=== PATIENT | female | born 1995 | race Caucasian/White ===

== ENCOUNTER 2017-12-08 13:30 | Outpatient (RCR) | payer MEDICAID, SELFPAY ==
--- NOTE | 2017-12-07 14:02 | HP.PTEVAL ---
Patient's Visit Information RAULITO PEDRO is a 22 year old F referred to Physical Therapy by Marika JAMESON with a diagnosis of BACK PAIN. Date of Evaluation: 12/07/17 Physical Therapist: Rhonda Story Visit Plan Frequency: 2-3x /Week Duration: 4-6 Weeks Plan: *ALMOST 27 WEEKS *. AQUATIC THERAPY FOR POSTURE CORRECTION/STRENGTHENING, INSTRUCTION IN APPROPRIATE BODY MECHANICS AND ACTIVITY MODIFICATIONS. DLS STARTING WITH A NEUTRAL SPINE PROGRESSING ROM TOLERATED. ROBERT LE ROM, STRETCHING AND STRENGTHENING. HEP INSTRUCTION. - Subjective Subjective: *PATIENT IS ALMOST 27 WEEKS *. Work/Leisure: WAS WORKING AT [employer] IN THE [facility] FROM JUN 2017 UNTIL NOV 21 2017. PATIENT REPORTS SHE HAS NOT BEEN ABLE TO WORK SINCE Nov DUE TO LOW BACK PAIN. WAS WORKING SYSTEM VALIDATION ENGINEER. BENDING, LIFTING AND TWISTING AT WORK. MOM OF 4 YEAR OLD. Disability: NO. Present symptoms: ALL THE WAY ACROSS THE LOW BACK AND LEFT ABDOMINAL AREA. DENIES LE SX'S. Present since: Nov. Pain Scale: BACK: WORSE 8/10, LEAST 1/10 LEFT ABDOMINAL AREA: WORST 8/10, LEAST 0/10. Currently: 2/. Commenced as a result of: NO APPARENT REASON OTHER THAN THE . Symptoms at onset: LOW BACK. Worse: MOVING AROUND, WALKING, STANDING, LIFTING, BENDING OVER. Better: HEATING PAD, LYING DOWN, PAIN MEDS (TYLONOL AND TRAMADOL). Disturbed sleep: YES. Previous history/Previous treatment: UNREMARKABLE. Coughing/sneezing/straining: NEGATIVE. Gait: BACK GETS STIFF AND SORE WITH PROLONGED WALKING. NO USING ANY ASSISTIVE DEVICES. Difficulty initiating urinatin: NO. Accidents: NO. Unexplained weight loss: NO. Imaging: NONE. PMH: UNREMARKABLE. Recent major surgery: NO - Objective Sitting Posture: POOR. Standing Posture: FAIR. Lordosis: INCREASED. Lateral shift: NO. Relevant shift: N/A. Active Correction of posture: BETTER. Other Observations: INDEP GAIT INTO PT WITHOUT AD. INDEP TRANSFERS SIT TO STAND WITHOUT UE ASSIST. Motor deficit: ROBERT LE STRENGTH 5/5 WITH MMT EXCEPT HIPS GRADED 4/5 LEFT AND 4-/5 RIGHT. Sensory deficit: ROBERT LE LIGHT TOUCH SENSATION INTACT AND SYMMETRICAL. ROM deficit: ROBERT LE'S WFL. Reflexes: 2/3 ROBERT. Dural Signs: POSITITVE ROBERT LE'S. Lumbar mvmt loss: flex - MOD. ext - MIN. R SG - MOD. L SG - MOD. PATIENT HAS C/O INCREASED LBP WITH LUMBAR ROM TESTING ALL PLANES LORENA FLEXION. PATIENT DID NOT REPORT INCREASED ABDOMINAL PAIN WITH ROM TESTING. Core strength: POOR. Palpation: TENDERNESS WITH PALPATION OF THE ENTIRE LUMBAR SPINE REGION. INCREASED MUSCLE TONE OF ROBERT THORACIC AND LUMBAR PARASPINALS. - Goals Goal 1:: DECREASE C/O LBP Goal Time Frame: 4-6 Weeks Goal 2:: IMPROVE STANDING, WALKING, BENDING, LIFTING, ADL, SLEEP AND WORK FUNCTION Goal Time Frame: 4-6 Weeks Goal 3:: INSTRUCT IN PROPHYLAXIS Goal Time Frame: 4-6 Weeks - Rehabilitation Potential Rehabilitation Potential: Good - Anticipated Interventions Patient/Client Instruction: Educate patient on: Condition, Plan of Care, Risk Factors, Benefits of Fitness Program For the Purpose of:: To improve self management Therapeutic Exercise to Include: Strength training, Body mechanics, Postural training, In an aquatic setting, Dynamic Lumbar Stabilization For the Purpose of:: To improve ability of physical actions for home/community/work/leisure Thank you for the opportunity to evaluate your patient. For Medicare and Medicare HMO plans, please review the plan of care and approve it. It will need to be FAXED BACK to us at [phone] for Medicare purposes. Please let me know if there are questions or concerns regarding this plan of care. Physician Signature: Date:
--- NOTE | 2017-12-24 14:50 | HP.PTDCNRP_ITS ---
HP - Discharge Summary (1) - Patient Information RAULITO PEDRO was seen in my office for initial evaluation on 12/07/17. The following Plan of Care was established for this patient: Initial Frequency: 2-3x /Week Initial Duration: 4-6 Weeks - Anticipated Interventions Patient/Client Instruction: Educate patient on: Condition, Plan of Care, Risk Factors, Benefits of Fitness Program For the Purpose of:: To improve self management Therapeutic Exercise to Include: Strength training, Body mechanics, Postural training, In an aquatic setting, Dynamic Lumbar Stabilization For the Purpose of:: To improve ability of physical actions for home/community/ work/leisure This patient was last seen in our office . Pertinent comments regarding their Physical therapy will appear below: THIS PATIENT WAS SEEN FOR AN INITIAL EVALUATION AND THEN SHE ATTENDED ONE FOLLOW UP VISIT. SHE HAS APPARENTLY BEEN UNABLE TO ATTEND PT DUE TO ILLNESS. I AM GOING TO GO AHEAD AND DISCHARGE HER CHART BUT WE WOULD BE HAPPY TO RESUME PT IN THE FUTURE APPROPRIATE. At this point I will be discontinuing this patient from physical therapy. I would be happy to see this patient again in the future if found appropriate by the physician. Thank you! Rhonda Cooper
== END 2017-12-08 19:00 | disposition home or self-care (01) ==
LOC: PT 13:30
PROVIDERS: Family Provider Family Medicine; PCP Family Medicine; Visit Provider Obstetrics & Gynecology
DX: O99.89 Other specified diseases and conditions complicating pregnancy, childbirth and the puerperium (principal); Z3A.25 25 weeks gestation of pregnancy
CPT/HCPCS: 97113; 97161; 97530

== ENCOUNTER → 2017-12-17 08:59 | Outpatient (CLI) | payer MEDICAID, SELFPAY ==
[2017-12-17 10:46] LABS: Hemoglobin 11.3 g/dl (12.0-15.0); Mean Corp Hgb Conc 33.2 g/gl (32-36); Mean Corpuscular Hgb 28.5 pg (27.0-32.0); Mean Corpuscular Volume 85.9 fL (81-99); Mean Platelet Vol. 9.7 fl (6.2-12.0); Platelet Count 173 K/mm3 (150-450); RBC Distribution Width CV 12.9 % (11.6-14.6); RBC Distribution Width SD 40.6 fl (35.1-43.9); Red Blood Count 3.96 M/mm3 (4.2-5.4); White Blood Count 6.4 K/mm3 (4.4-11.0)
[2017-12-17 10:47] LABS: Scan Indicated on CBC? Y/N NO
[2017-12-17 10:48] LABS: Glucose Challenge Gest 1H 50g 101 mg/dL (70-140)
== END ==
PROVIDERS: Visit Provider Obstetrics & Gynecology
DX: Z34.83 Encounter for supervision of other normal pregnancy, third trimester (principal); R30.0 Dysuria; R31.9 Hematuria, unspecified
CPT/HCPCS: 36415; 82950; 85027; 87086; 87088

== ENCOUNTER 2018-02-05 16:20 | Outpatient (CLI) | payer MEDICAID, SELFPAY ==
[2018-02-05 16:48] VITALS: BMI 31.6
[2018-02-05] MEDS: Acetaminophen 500 MG Tablet 1000 MG PO (17:19)
--- NOTE | 2018-02-06 10:58 | OB.TRI.NOTE ---
History of Present Illness Date of Service: 02/05/18 Was patient seen by the physician?: No Reason For Visit: FALL Date of Service: 02/05/18 Final MATILDE: 03/11/18 Final MAITLDE Source: US <20 weeks Gestational age: 35 Weeks and 1 Days History of Present Illness: 35+ week intrauterine status post fall on her back at home. Did not hit abdomen. Denies any vaginal bleeding. Maternal blood type is A+. Home Medications Medication Instructions Recorded Vits [Prenatabs FA] 1 tablet PO DAILY 02/05/18 Ranitidine [Zantac] 150 mg PO BID 02/05/18 Allergies No Known Allergies Allergy (Unverified 02/05/18 16:48) NST - FHR Rate Baby A NST Reactive:: Yes FHR Category:: Category I Impression/Plan 35+ week intrauterine status post fall. Monitored for 4 hours with reactive heart tones noted and no decelerations. Minimal uterine irritability. Patient continues to have some musculoskeletal discomfort which has been partially relieved with some oral Tylenol. Recommended continuing Tylenol at home as needed for discomfort. To continue movement counts and to call with any decreased movement or vaginal bleeding. Otherwise routine follow-up in the office.
--- NOTE | 2018-02-06 11:01 | OB.TRI.HP_ITS ---
History of Present Illness Date of Service: 02/05/18 Was patient seen by the physician?: No Reason For Visit: FALL Date of Service: 02/05/18 Final MATILDE: 03/11/18 Final MATILDE Source: US <20 weeks Gestational age: 35 Weeks and 1 Days History of Present Illness: 35+ week intrauterine status post fall on her back at home. Did not hit abdomen. Denies any vaginal bleeding. Maternal blood type is A+. Home Medications Medication Instructions Recorded Vits [Prenatabs FA] 1 tablet PO DAILY 02/05/18 Ranitidine [Zantac] 150 mg PO BID 02/05/18 Allergies No Known Allergies Allergy (Unverified 02/05/18 16:48) NST - FHR Rate Baby A NST Reactive:: Yes FHR Category:: Category I Impression/Plan 35+ week intrauterine status post fall. Monitored for 4 hours with reactive heart tones noted and no decelerations. Minimal uterine irritability. Patient continues to have some musculoskeletal discomfort which has been partially relieved with some oral Tylenol. Recommended continuing Tylenol at home as needed for discomfort. To continue movement counts and to call with any decreased movement or vaginal bleeding. Otherwise routine follow-up in the office.
== END 2018-02-05 19:47 | disposition home or self-care (01) ==
LOC: WPOUT 16:22 → WP 16:23
PROVIDERS: Family Provider Family Medicine; PCP Family Medicine; Visit Provider Obstetrics & Gynecology
DX: Z34.93 Encounter for supervision of normal pregnancy, unspecified, third trimester (principal); Z91.81 History of falling
CPT/HCPCS: 59025; 59050; 99218; G0378

== ENCOUNTER 2018-02-07 14:35 | Outpatient (CLI) | payer MEDICAID, SELFPAY ==
[2018-02-07 15:08] VITALS: BMI 31.8
--- NOTE | 2018-02-08 18:53 | OB.TRI.NOTE ---
History of Present Illness Was patient seen by the physician?: No Reason For Visit: VAGINAL BLEEDING Date of Service: 02/07/18 Final MATILDE: 03/11/18 Gestational age: 35 Weeks and 3 Days History of Present Illness: 35+ week intrauterine presents with some dark tinged blood that she noted at home. Patient has been feeling some crampiness at home. Home Medications Medication Instructions Recorded Vits [Prenatabs FA] 1 tablet PO DAILY 02/05/18 Ranitidine [Zantac] 150 mg PO BID 02/05/18 Allergies No Known Allergies Allergy (Verified 02/07/18 15:08) NST - FHR Rate Baby A NST Reactive:: Yes FHR Category:: Category I Impression/Plan 35+ week intrauterine with transient contractions. No active bleeding at present is no bright red blood was seen on the globe or the pad. Cervix was fingertip thick and high as well as firm and posterior. Reactive nonstress test. Will release to home with routine instructions.
== END 2018-02-07 15:35 | disposition home or self-care (01) ==
LOC: WPOUT 14:48 → WP 14:49
PROVIDERS: Family Provider Family Medicine; PCP Family Medicine; Visit Provider Obstetrics & Gynecology
DX: O46.93 Antepartum hemorrhage, unspecified, third trimester (principal); Z3A.35 35 weeks gestation of pregnancy
CPT/HCPCS: 59025; 59050; 99218; G0378

== ENCOUNTER → 2018-02-10 14:50 | Outpatient (CLI) | payer MEDICAID, SELFPAY ==
[2018-02-10 17:12] LABS: Group B Strep DNA By PCR POSITIVE (Negative); Probe Check PASS
== END ==
PROVIDERS: Visit Provider Obstetrics & Gynecology
DX: Z36.85 Encounter for antenatal screening for Streptococcus B (principal)
CPT/HCPCS: 87653

== ENCOUNTER 2018-03-18 07:05 | Inpatient (IN) | payer MEDICAID, SELFPAY ==
--- NOTE | 2018-03-18 07:05 | DT_ITS ---
This patient was seen during an EMR downtime March 15, 2018 - March 22, 2018. This patient may have a combination of paper and electronic documentation or all paper documentation. All documentation is viewable within the e-chart portion of [employer] for each patient visit.
[2018-03-21 10:56] LABS: Hematocrit 31.5 % (37-47); Hemoglobin 9.9 g/dl (12.0-15.0); Mean Corp Hgb Conc 31.4 g/gl (32-36); Mean Corpuscular Hgb 24.9 pg (27.0-32.0); Mean Corpuscular Volume 79.1 fL (81-99); Mean Platelet Vol. 10.6 fl (6.2-12.0); Platelet Count 175 K/mm3 (150-450); RBC Distribution Width CV 14.2 % (11.6-14.6); RBC Distribution Width SD 40.3 fl (35.1-43.9); Red Blood Count 3.98 M/mm3 (4.2-5.4); Scan Indicated on CBC? Y/N NO; White Blood Count 11.2 K/mm3 (4.4-11.0)
[2018-03-22 17:01] LABS: Hematocrit 27.6 % (37-47); Hemoglobin 8.6 g/dl (12.0-15.0); Mean Corp Hgb Conc 31.2 g/gl (32-36); Mean Corpuscular Hgb 25.4 pg (27.0-32.0); Mean Corpuscular Volume 81.7 fL (81-99); Platelet Count 151 K/mm3 (150-450); RBC Distribution Width SD 39.9 fl (35.1-43.9); Red Blood Count 3.38 M/mm3 (4.2-5.4); Scan Indicated on CBC? Y/N NO; White Blood Count 10.7 K/mm3 (4.4-11.0)
== END 2018-03-20 12:55 | disposition home or self-care (01) | DRG 372 ==
PROVIDERS: Admitting Provider Obstetrics & Gynecology; Family Provider Family Medicine; PCP Family Medicine; Visit Provider Obstetrics & Gynecology
DX: O48.0 Post-term pregnancy (principal); O98.82 Other maternal infectious and parasitic diseases complicating childbirth; Z3A.41 41 weeks gestation of pregnancy; B95.1 Streptococcus, group B, as the cause of diseases classified elsewhere; Z37.0 Single live birth; O72.1 Other immediate postpartum hemorrhage
CPT/HCPCS: 59025; 59050; 85027; 86850; 86900; 99218; A4216; G0378

== ENCOUNTER → 2018-04-28 11:26 | Outpatient (CLI) | payer MEDICAID, SELFPAY ==
[2018-05-03 10:11] LABS: HPV Reflexed? NOT INDICATED
== END ==
PROVIDERS: Visit Provider Obstetrics & Gynecology
DX: R87.612 Low grade squamous intraepithelial lesion on cytologic smear of cervix (LGSIL) (principal)
CPT/HCPCS: 88175; G0145

== ENCOUNTER → 2018-12-28 09:17 | Outpatient (CLI) | payer MEDICAID, SELFPAY ==
[2018-12-28 10:04] LABS: Absolute Lymphocyte Count 2.27 X10^3/ul (0.83-4.51); Absolute Neutrophil Count 2.8 X10^3/uL (2.0-7.7); Basophil# 0.01 X10^3/uL; Basophil% 0.2 % (0-1); Eosinophil# 0.04 X10^3/uL; Eosinophils% 0.7 % (0-5); Hematocrit 35.3 % (37-47); Hemoglobin 10.8 g/dl (12.0-15.0); Lymphocyte # 2.27 X10^3/ul (4.0); Lymphocyte % 42.2 % (19-41); Mean Corp Hgb Conc 30.6 g/gl (32-36); Mean Corpuscular Hgb 25.1 pg (27.0-32.0); Mean Corpuscular Volume 82.1 fL (81-99); Mean Platelet Vol. 10.3 fl (6.2-12.0); Monocyte# 0.31 X10^3/uL; Monocyte% 5.8 % (0-10); Neutrophil # 2.75 X10^3/uL (2.7-7.7); Neutrophil % 51.1 % (47-70); Platelet Count 204 K/mm3 (150-450); RBC Distribution Width CV 15.9 % (11.6-14.6); RBC Distribution Width SD 46.9 fl (35.1-43.9); White Blood Count 5.4 K/mm3 (4.4-11.0)
[2018-12-28 10:05] LABS: POSITIVE COUNT NO; POSITIVE DIFFERENTIAL NO; POSITIVE MORPHOLOGY NO
[2018-12-28 10:27] LABS: Anion Gap 9 (5-15); BUN 15 mg/dL (7-18); BUN/Creat Ratio 17.1 RATIO (10-20); Calcium,Total 8.3 mg/dL (8.5-10.1); Chloride 106 mmol/L (98-107); Creatinine, Serum 0.88 mg/dL (0.55-1.02); EST Glomerular Filtration Rate 84 mL/min (>60); Est Glom Filt Rate - Afr Amer 102 mL/min (>60); Glucose 88 mg/dL (74-106); Potassium 4.3 mmol/L (3.5-5.1); Sodium Level 141 mmol/L (136-145)
== END ==
PROVIDERS: Family Provider Family Medicine; PCP Family Medicine; Referring Provider Family Medicine; Visit Provider Nurse Practitioner Adult Health
DX: K52.9 Noninfective gastroenteritis and colitis, unspecified (principal)
CPT/HCPCS: 36415; 80048; 85025

== ENCOUNTER → 2018-12-30 15:58 | Outpatient (CLI) | payer MEDICAID, SELFPAY ==
--- NOTE | 2018-12-30 16:01 | RAD_ITS ---
STUDY: X-RAY - ABDOMEN/PELVIS REASON FOR EXAM: Female, 23 years old. Abdominal pain TECHNIQUE: AP supine and upright views of the abdomen and pelvis. COMPARISON: None. FINDINGS: Normal visualized lung bases. There is an unremarkable bowel gas pattern. There is no demonstrated free abdominal air. The visualized liver, spleen and kidneys are grossly normal in size and morphology. Normal soft tissue structures. Normal visualized osseous structures. RAD/Abd Inc Decub and/or Erect IMPRESSION: Normal x-ray examination of the abdomen and pelvis. Electronically Signed: Adelaida Javier, at 15:44 EDT Tel , Service support ,
== END ==
PROVIDERS: Family Provider Family Medicine; PCP Family Medicine; Referring Provider Family Medicine; Visit Provider Family Medicine
DX: R10.9 Unspecified abdominal pain (principal)
CPT/HCPCS: 74019

== ENCOUNTER → 2019-07-20 14:11 | Outpatient (CLI) | payer MEDICAID, SELFPAY ==
[2019-07-25 10:32] LABS: HPV Reflexed? NOT INDICATED
== END ==
PROVIDERS: Visit Provider Obstetrics & Gynecology
DX: Z12.4 Encounter for screening for malignant neoplasm of cervix (principal)
CPT/HCPCS: 88175; G0145

== ENCOUNTER 2019-11-22 16:27 | Emergency (ER) | payer MEDICAID, SELFPAY ==
[2019-11-22 16:28] VITALS: BP 153/104; PULSE 111; RESP 16; TEMP 36.1; O2SAT 100; BMI 27.3
--- NOTE | 2019-11-22 16:59 | CT_ITS ---
STUDY: CT ABDOMEN AND PELVIS WITH CONTRAST REASON FOR EXAM: Female, 24 years old. LLQ PAIN, NAUSEA RADIATION DOSAGE (If Supplied By Facility): CTDIvol = ( 13.3 ) mGy, DLP = ( 838.02 ) mGycm TECHNIQUE: Transaxial images were obtained from the dome of the diaphragm to the symphysis pubis without oral contrast. IV 100mL Isovue-300 was administered. Sagittal and coronal images were reconstructed. Individualized dose optimization techniques were used for this CT. COMPARISON: None. FINDINGS: The visualized lung bases are unremarkable. The visualized portions of the heart are within normal limits. Normal liver. The punctate hyperdensities within the gallbladder.. Normal spleen. Normal pancreas. Normal bilateral adrenal glands. Normal right kidney. Normal left kidney. Normal visualized stomach. Normal small intestine. There is a moderate colonic fecal load. The appendix is visualized and appears normal. Normal abdominal aorta. Normal inferior vena cava. Normal retroperitoneum. Normal urinary bladder. Normal abdominal wall. Normal osseous structures. There is a retroverted uterus. CT/Abdomen/Pelvis W IV Cont ONLY IMPRESSION: Punctate hyperdensities within the gallbladder, gallstones and/or gallbladder polyps Moderate colonic fecal load Retroverted uterus Electronically Signed: Hawk Chu, at 18:25 EST Tel , Service support ,
--- NOTE | 2019-11-22 17:10 | ED.VIS.GI ---
History of Present Illness Chief Complaint: Abd Pain Narrative: Patient presenting for evaluation secondary to abdominal pain. Patient reports that over the course of the last 3 days she has been dealing with left lower quadrant abdominal pain. This was preceded by 2 days of nausea with no vomiting. Patient states that the pain is continuous and waxing and waning. It is not relieved by anything, but does maybe seem like it is exacerbated by eating. She denies any nausea vomiting diarrhea dysuria hematuria vaginal discharge or bleeding. Patient reports that she is on control, last normal menstrual cycle was about a week ago was normal timing and normal duration. Patient reports that she is never had any abdominal surgeries, she denies any prior similar episodes in the past. Review of systems otherwise negative. Past Medical History - Allergies and Home Meds Allergies/Adverse Reactions: Allergies No Known Allergies Allergy (Verified 11/22/19 16:28) Primary Care Physician: NOT,DEFINED [NON-STAFF] - Past Medical History: None Smoking Status: Never smoker Review of Systems All systems negative except as indicated General: Denies: Chills, Fever, Sweats Eyes: Denies: Visual changes - bilaterally, Diplopia ENT: Denies: Rhinorrhea, Sore throat Cardiovascular: Denies: Chest pain, Palpitations Respiratory: Denies: Dyspnea, Cough, Dyspnea on exertion Gastrointestinal: Reports: Abdominal pain, Nausea Genitourinary: Denies: Dysuria, Hematuria, Frequency Musculoskeletal: Denies: Back pain, Extremity Pain Skin: Denies: Rash, Wounds Neurological: Denies: Headache, Weakness, Numbness Physical Exam Vital Signs/Narrative: Vital Signs Temp Pulse Resp BP Pulse Ox 11/22/19 16:28 97 F L 111 H 16 153/104 H 100 Inital Vital Signs reviewed: Yes General: Well nourished, Well developed, No Acute Distress Head: Normocephalic, Atraumatic Eyes: Perrl, EOMI ENT: Moist mucous membranes, No rhinorrhea Neck: Supple, Nontender Cardiovascular: Regular rhythm, No murmurs, Tachycardia Respiratory: No distress, CTA bilaterally, Chest nontender Abdomen: Soft, Nondistended, Normal bowel sounds, Tender - Pelvis is nontender with no suprapubic, left adnexal, or right adnexal tenderness. Patient above that has tenderness in the left lower quadrant without guarding or rebound. Back: Nontender, Normal Inspection Extremities: Nontender, No edema Skin: Normal color, No rash Neurological: Alert, Oriented x3, Cranial nerves II-XII grossly intact, Normal Strength, Normal Sensation Psychological: Normal affect, Normal Mood Diagnostic/Tx/Re-eval - Medical Decision Making Patient presented secondary to abdominal pain. Patient's physical exam really seems more consistent with abdominal pathology rather than pelvic pathology as the patient's reproducible pain is higher in her abdomen that her pelvis. Patient was evaluated with lab work, urinalysis, and CT. CBC, chemistry, urinalysis, and test found to be negative. CT abdomen and pelvis with IV contrast demonstrated evidence of a large stool burden, but no other evidence of acute pathology. Patient was given Toradol and has a nonsurgical abdomen. At this point I believe her pain likely is secondary to constipation. She will be discharged with a course of lactulose for bowel reconstitution. Patient was discharged in stable condition. ED Disposition - Plan for ED Patient: Disposition: Home or Assisted Living Diagnosis: Constipation Instructions: CONSTIPATION (Adult) Prescriptions: Lactulose 10 gm PO DAILY #60 ml Prescription Printed Additional Instructions: Follow-up with your primary care physician as needed
[2019-11-22 17:18] LABS: Mucous, Urine 0 SEEN /hpf (<or=2+); Red Blood Cells-Urine 0 SEEN /hpf (0-5)
[2019-11-22 17:22] LABS: Absolute Lymphocyte Count 2.89 X10^3/uL (0.83-4.51); Absolute Neutrophil Count 4.1 X10^3/uL (2.0-7.7); Basophil# 0.02 X10^3/uL; Basophil% 0.3 % (0-1); Eosinophil# 0.03 X10^3/uL; Eosinophils% 0.4 % (0-5); Hematocrit 38.6 % (37-47); Hemoglobin 12.8 g/dL (12.0-15.0); Lymphocyte # 2.89 X10^3/ul (4.0); Lymphocyte % 38.2 % (19-41); Mean Corp Hgb Conc 33.2 g/dL (32-36); Mean Corpuscular Hgb 28.7 pg (27.0-32.0); Mean Corpuscular Volume 86.5 fL (81-99); Mean Platelet Vol. 9.4 fl (6.2-12.0); Monocyte# 0.52 X10^3/uL; Monocyte% 6.9 % (0-10); NRBC Flagged by Analyzer 0 % (0-5); Neutrophil # 4.09 X10^3/uL (2.7-7.7); Neutrophil % 53.9 % (47-70); Platelet Count 245 K/mm3 (150-450); RBC Distribution Width CV 11.9 % (11.6-14.6); RBC Distribution Width SD 37.7 fl (35.1-43.9); Red Blood Count 4.46 M/mm3 (4.2-5.4); White Blood Count 7.6 K/mm3 (4.4-11.0)
[2019-11-22 17:29] LABS: Color, Urine Yellow (Yellow); Glucose, Dipstick Normal (Normal); Internal QC Validated? YES +Cl - CLEAR BKGD; Ketone-Dipstick Negative (Negative); Leukocyte Esterase-Dipstick 25 /ul (Negative); Nitrite-Dipstick Negative (Negative); Occult Blood-Urine Negative /ul (Negative); Pregnancy, Urine Negative Negative; Protein-Dipstick Negative (Negative); Urine Bilirubin Dipstick Negative (Negative); Urine Clarity Cloudy (Clear); Urine Urobilinogen Normal (Normal)
[2019-11-22 17:33] LABS: Anion Gap 5 (5-15); BUN 12 mg/dL (7-18); BUN/Creat Ratio 13.9 RATIO (10-20); Chloride 106 mmol/L (98-107); Creatinine, Serum 0.86 mg/dL (0.55-1.02); EST Glomerular Filtration Rate 85 mL/min (>60); Est Glom Filt Rate - Afr Amer 103 mL/min (>60); Estimated Creatinine Clearance 97.24 ml/min; Glucose 84 mg/dL (74-106); Potassium 3.8 mmol/L (3.5-5.1); Sodium Level 138 mmol/L (136-145)
[2019-11-22 17:57] LABS: Bacteria 1+ /hpf (None Seen); Squamous Epithelial Cells - UA 0-5 SEEN /hpf (5-10); White Blood Cells 0-5 SEEN /hpf (0-5)
[2019-11-22] MEDS: Ketorolac 15 MG/ML Vial IV (18:23)
[2019-11-22 18:55] VITALS: RESP 16
[2019-11-22 19:36] VITALS: BP 145/87; PULSE 99; RESP 17; O2SAT 98
== END 2019-11-22 19:37 | disposition home or self-care (01) ==
PROVIDERS: Emergency Provider Emergency Medicine; PCP Family Medicine
DX: K59.00 Constipation, unspecified (principal); N85.4 Malposition of uterus
CPT/HCPCS: 74177; 80048; 81001; 81025; 85025; 96374; 99283; Q9967; A4216

== ENCOUNTER → 2020-04-09 16:53 | Outpatient (CLI) | payer MEDICAID, SELFPAY ==
[2020-04-09 18:49] LABS: ALB/GLOB Ratio 0.8 RATIO (0.9-2.4); AST(SGOT) 16 U/L (15-37); Alanine Aminotransfer ALT/SGPT 22 U/L (13-56); Albumin, Serum 3.3 g/dL (3.2-5.0); Alkaline Phosphatase 109 U/L (45-117); Anion Gap 6 (5-15); BUN 18 mg/dL (7-18); BUN/Creat Ratio 23.1 RATIO (10-20); Calcium,Total 8.4 mg/dL (8.5-10.1); Chloride 101 mmol/L (98-107); Creatinine, Serum 0.78 mg/dL (0.55-1.02); EST Glomerular Filtration Rate 95 mL/min (>60); Est Glom Filt Rate - Afr Amer 115 mL/min (>60); Globulin 4.4 g/dL (2.2-4.2); Glucose 84 mg/dL (74-106); Potassium 3.6 mmol/L (3.5-5.1); Protein, Total 7.7 g/dL (6.4-8.2); Sodium Level 135 mmol/L (136-145); Thyroid Stim Hormone (TSH) 1.25 uIU/mL (0.358-3.74)
== END ==
PROVIDERS: PCP Family Medicine; Referring Provider Family Medicine; Visit Provider Family Medicine
DX: R63.5 Abnormal weight gain (principal)
CPT/HCPCS: 36415; 80053; 84443

== ENCOUNTER 2021-03-22 11:02 | Day surgery (SDC) | payer MEDICAID, SELFPAY ==
[2021-03-21 15:20] VITALS: BMI 27.3
[2021-03-22] VITALS (8 sets, daily range): BP systolic 86–125; BP diastolic 43–65; PULSE 65–90; RESP 14–16; TEMP 36.1–37.3; O2SAT 99–100; BMI 32.0
--- NOTE | 2021-03-22 11:29 | PCM.HP.BLA ---
History and Physical Date of Admission: 03/22/21 Date of Service: 03/21/21 MR#:[id number] Acct:[id number] Name: RAULITO PEDRO :1995 Age/Sex: 25/F Rep #:[id number] Provider:Dr. 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 Is patient in pain?: No Allergies No Known Allergies Allergy (Verified 03/21/21 15:17) Medications drospirenone-ethinyl estradiol 1 tab PO DAILY 11/22/19 [History Confirmed 03/21/21] duloxetine 60 mg PO DAILY 11/22/19 [History Confirmed 11/22/19] lactulose 10 gm PO DAILY #60 ml 11/22/19 [Rx] cetirizine 10 mg tablet 10 mg PO BID PRN tab 03/21/21 [History Confirmed 03/21/21] famotidine 20 mg tablet 20 mg PO DAILY 03/21/21 [History Confirmed 03/21/21] pantoprazole 40 mg tablet,delayed release 40 mg PO DAILY 30 Days #30 tab 03/21/21 [Rx Confirmed 03/21/21] prenat.vits,chao,uyz-iqtu-lojiy 1 tab PO DAILY 03/21/21 [History Confirmed 03/21/21] sertraline 50 mg tablet 50 mg PO DAILY tab 03/21/21 [History Confirmed 03/21/21] Is last menstrual period known: No Post menopausal: No Patient : No PFSH Medical History (Updated 03/21/21 @ 16:[address] Jil Farmer MD) Anemia Anxiety GERD (gastroesophageal reflux disease) Surgical History (Updated 03/21/21 @ 15:16 by Sneha Perez) History of wisdom tooth extraction Family History (Updated 03/21/21 @ 15:17 by Sneha Perez) Mother Diabetes Father Diabetes Hypertension Hyperlipidemia Grandmother Cancer Social History Smoking Status: Never smoker HPI HPI HPI: RAULITO PEDRO, is a 25 F who presents to the office today for upper quadrant pain/gallstones. Patient states that she has been having some issues with her bowels for the last month where she will have to run to the bathroom after eating usually lettuce or greasy foods. Patient did have an ultrasound of her gallbladder which showed gallstones normal bladder wall, normal common bile duct. Patient does complain of some right upper quadrant pain after eating eating fatty or greasy foods. Patient also has reflux which she states she has had since she was 6 is been on medication since then. Previously patient was on ranitidine currently patient is on omeprazole 40 mg daily and Pepcid 40 mg p.o. at night. Patient has never had a previous EGD. ROS General General: Yes weight change and fatigue; No appetite, colon cancer, breast cancer or weakness HEENT HEENT: No difficulty swallowing, eye injury, eye surgery, swollen glands or hoarseness Endo Endocrine: No thyroid disease, diabetes mellitus, thyroid cancer, Hair loss, heat intolerance or cold intolerance Musc Musculoskeletal: No back problems, arthritis, rheumatoid arthritis, gout or joint pain Cardio Cardiovascular: No murmur, pacemaker, heart disease, atrial fibrillation, high blood pressure, heart attack, heart stent, palpitations, shortness of breat with exertion or chest pain Psych Psychiatric: Yes anxiety; No depression or hearing voices Resp Respiratory: No shortness of breath, No sleep apnea, No cough, No COPD, No asthma, No emphysema and No wheezing Gastro Gastrointestinal: Yes abdominal pain, Yes nausea or vomiting, Yes diarrhea, Yes constipation, No blood in stool, Yes acid reflux, No hemorrhoids, No ulcers, Yes gallbladder problem and No black,tarry stools [place] Hematologic: No blood thinners, No blood disorders, No bleeding, Yes anemia and No blood clots Neuro Neurologic: No weakness Exam Const General: cooperative, healthy appearing, comfortable and no acute distress Neck Neck: normal visual inspection Resp Effort & Inspection: normal respiratory effort Cardio Rate: regular rate GI Inspection: non-distended Palpation: soft, no guarding and tender (Left upper quadrant/epigastric/right upper quadrant, no peritoneal signs) Skin General: no rashes or lesions noted Neuro General: patient oriented x3 Psych Affect: normal affect Assessment and Plan Assessment and Plan (1) GERD (gastroesophageal reflux disease): Status: Acute (2) Gallstones: Status: Acute (3) RUQ pain: Status: Acute (4) Epigastric pain: Status: Acute (5) LUQ pain: Status: Acute Patient Instructions: Recommend patient have an EGD prior to laparoscopic cholecystectomy as patient's had a longstanding history of reflux and never had a previous scope. Patient was agreeable with plan. We will plan change patient to Protonix 40 mg p.o. daily as she was still having tenderness in the left upper quadrant on exam been on omeprazole 40 mg daily and Pepcid 40 mg p.o. at night. I have discussed the above with the patient. I have offered the patient EGD for evaluation. I have explained the risks/benefits of the procedure and described the procedure. I have discussed the risks with the patient, including but not limited to: infection, bleeding, perforation of the GI tract requiring emergency surgery, inability to complete the procedure, injury to any internal organs, complications of anesthesia, etc. - the patient understands and agrees to proceed. I have answered all the patient's questions to the patient's satisfaction and the patient has no further questions. Reviewed the anatomy with the patient and discussed the procedure: laparoscopic cholecystectomy with possible cholangiograms, possible open. Review risks including but not limited to bleeding, infection, hernia, bile leak, retained gallstones requiring another procedure ERCP- Endoscopic Retrograde Cholangiopancreatography, injury to another organ (bile ducts, common bile duct, small bowel, etc.) and conversion to an open procedure. All questions were answered. Jil Farmer M.D. Pager: [phone] [facility] [address] [place] [address], [address] [place] [address] Office: [phone] Plan Details Other Medications: New: pantoprazole (Protonix) 40 mg PO DAILY 30 days 30 tabs 0RF Discontinued: omeprazole Discontinued Reason: Order Changed PO Coding Level of Care Code Off vis,new,level 3 Diagnoses GERD (gastroesophageal reflux disease) K21.9 Gallstones K80.20 RUQ pain R10.11 Epigastric pain R10.13 LUQ pain R10.12 03/21/21 1614<Electronically signed by Jil Farmer MD>Date Jil Farmer MD
[2021-03-22] MEDS: Lactated Ringers 1,000 ML 100 ML IV (11:56)
--- NOTE | 2021-03-22 12:00 | IMM_PTH ---
PATIENT: RAULITO PEDRO LOC: EN U#:[id number] AGE/SX: 25/F ROOM: RE03/22/[address]: Dr. Jil Farmer MD : 1995 BED: DIS: 03/22/2021 SPEC #: [id number] RECD: 03/25/21 09:14 STATUS: NAVIN GORGE #: [id number] ZORAN: 03/22/21 12:[address]: Jil Farmer DEPT: IMMUNOHISTOCHEMISTRY RECD BY: Ira Santamaria ENTERED: 03/25/21 09:14 SP TYPE: IMMUNO OTHR DR: Carol Montenegro PA-C Tissues: A - Stomach, NOS Procedures: H Pylori (initial) PHYSICIAN & INSTITUTION [place] [facility] [id number] SPECIMEN INFORMATION: Tissue Source: A ? Antral biopsy Clinical Info: GERD, LUQ abdominal pain, RUQ pain, epigastric pain, gallstones Specimen Number: [id number] CPT code: 61434 METHODOLOGY: Deparaffinized sections of prefer/formalin-fixed tissue or PAP/DQ stained slides are incubated with monoclonal/polyclonal antibodies/oligonucleotide probes. Localization is made via biotin free immunoperoxidase method. Appropriate controls are performed and reacted as expected. Results on target cell population are indicated in the following table: RESULTS: ANTIBODY / CLONE RESULT Block A H Pylori (polyclonal) negative These tests were developed and their performance characteristics determined by [facility]. They may not have been cleared or approved by the U.S. Food and Drug Administration. The FDA has determined that such clearance or approval is not necessary. INTERPRETATION: A. Antral biopsy: Negative for Helicobacter pylori organisms. KAT:monica 03/26/2021
[2021-03-22 12:06] LABS: Internal QC Validated? YES +Cl - CLEAR BKGD; Pregnancy, Urine Negative Negative
--- NOTE | 2021-03-22 12:48 | OP.CCLET_ITS ---
03/22/2021 [facility] Re : Upper GI endoscopy procedure for Coty Montenegro This procedure was performed on Monday, March 22, 2021. My impressions and recommendations are as follows: Impressions : - Z-line irregular, 40 cm from the incisors. Biopsied. - Normal examined duodenum. - Erythematous mucosa in the antrum and prepyloric region of the stomach. Biopsied. Recommendations : - Await pathology results. - Discharge patient to home. - Resume previous diet. - Continue present medications. My findings are described in the full procedure note, which is enclosed. If I can be of further assistance, please feel free to contact me at Doctor phone number(s): , Work: . Sincerely, MD Jil Doherty MD 03/22/2021 12:47:50 PM This report has been signed electronically.
--- NOTE | 2021-03-22 12:48 | OP.EGD_ITS ---
Patient Name: Coty Wheat Procedure Date: 03/22/2021 11:12 AM Date of : 1995 Age: 25 Procedure: Upper GI endoscopy Indications: Suspected esophageal reflux Providers: Jil Farmer MD Medicines: Monitored Anesthesia Care Patient Profile: This is a 25 year old female. Complications: No immediate complications. Procedure: Pre-Anesthesia Assessment: - Prior to the procedure, a History and Physical was performed, and patient medications and allergies were reviewed. The patient's tolerance of previous anesthesia was also reviewed. The risks and benefits of the procedure and the sedation options and risks were discussed with the patient. All questions were answered, and informed consent was obtained. Prior Anticoagulants: The patient has taken no previous anticoagulant or antiplatelet agents. ASA Grade Assessment: Per anesthesia. After reviewing the risks and benefits, the patient was deemed in satisfactory condition to undergo the procedure. After obtaining informed consent, the endoscope was passed under direct vision. Throughout the procedure, the patient's blood pressure, pulse, and oxygen saturations were monitored continuously. The gastroscope was introduced through the mouth, and advanced to the second part of duodenum. The upper GI endoscopy was accomplished without difficulty. The patient tolerated the procedure well. Scope In: 12:36:30 PM Scope Out: 12:41:48 PM Total Procedure Duration Time 0 hours 5 minutes 18 seconds Findings: The Z-line was irregular and was found 40 cm from the incisors. Biopsies were taken with a cold forceps for histology. The examined duodenum was normal. Mildly erythematous mucosa without bleeding was found in the gastric antrum and in the prepyloric region of the stomach. Biopsies were taken with a cold forceps for histology. Biopsies were taken with a cold forceps for Helicobacter pylori cultures. The cardia and gastric fundus were normal on retroflexion. Impression: - Z-line irregular, 40 cm from the incisors. Biopsied. - Normal examined duodenum. - Erythematous mucosa in the antrum and prepyloric region of the stomach. Biopsied. Recommendation: - Await pathology results. - Discharge patient to home. - Resume previous diet. - Continue present medications. Procedure Code(s): --- Professional --- 95045, PT, Esophagogastroduodenoscopy, flexible, transoral; with biopsy, single or multiple Diagnosis Code(s): --- Professional --- K22.8, Other specified diseases of esophagus K31.89, Other diseases of stomach and duodenum CPT copyright 2017 [employer]. All rights reserved. The codes documented in this report are preliminary and upon ground source heat pump technician review may be revised to meet current compliance requirements. MD Jil Doherty MD 03/22/2021 12:47:50 PM This report has been signed electronically. Number of Addenda: 0 Note Initiated On: 03/22/2021 11:12 AM
--- NOTE | 2021-03-25 | GASB_PTH ---
PATIENT: RAULITO PEDRO LOC: EN U#:[id number] AGE/SX: 25/F ROOM: RE03/22/[address]: Dr. Jil Farmer MD : 1995 BED: DIS: 03/22/2021 SPEC #: [id number] RECD: 03/25/21 13:01 STATUS: NAVIN GORGE #: [id number] ZORAN: 03/25/21 00:[address]: Jil Farmer DEPT: SURGICAL PATHOLOGY RECD BY: Hao Kan ENTERED: 03/25/21 09:52 SP TYPE: Gastric Bx OT DR: Carol Montenegro PA-C Tissues: A - Gastric mucous membrane B - Gastric mucous membrane Procedures: Special Stain Group II Surgery Specimen Level IV Alcian Blue/PAS (control) HEADER OPERATION: EGD ([facility] [place]) PRE-OP DIAGNOSIS: GERD, LUQ abdominal pain, RUQ pain, epigastric pain, gallstones TISSUE SUBMITTED: A ? Antral biopsy and H. pylori and path, B ? GE junction biopsy MICROSCOPIC DIAGNOSIS A. Antral biopsy: Minimal gastritis. See microscopic description and comment. B. GE junction, biopsy: Fragments of gastroesophageal mucosa with mild chronic inflammation. Intestinal metaplasia (goblet cell metaplasia) is not identified. See comment. SJ:rg 03/26/2021 COMMENT A. The results of immunohistochemistry for Helicobacter pylori will be reported separately ([id number]). B. Alcian blue/PAS stain with matched control is used in the evaluation of the specimen. MICROSCOPIC DESCRIPTION Slides are reviewed. A. The specimen shows fragments of gastric mucosa with chronic inflammatory cell infiltrates in the lamina propria consisting of lymphocytes and plasma cells, consistent with minimal chronic gastritis. GROSS DESCRIPTION A - Received in fixative is one container labeled with the patient's name and designated antral biopsy. The specimen consists of one irregular fragment of light montgomery soft tissue that measures 0.6 x 0.3 x 0.1 cm. The specimen is totally submitted in one cassette. B - Received in fixative is one container labeled with the patient's name and designated GE junction biopsy. The specimen consists of two irregular fragments of light montgomery soft tissue that in aggregate measure 0.4 x 0.3 x 0.1 cm. The specimen is totally submitted in one cassette. / AM:monica 03/25/21 TC:4 CPT: 92773 x2, 87980
== END 2021-03-22 13:58 ==
LOC: EN 11:05 → AC 11:07
PROVIDERS: Anesthesiology; PCP Family Medicine; Referring Provider Family Medicine; Visit Provider Surgery
PROC: 0DJ08ZZ Inspection of Upper Intestinal Tract, Via Natural or Artificial Opening Endoscopic (ICD-10-PCS; CPT 43235; principal; 2021-03-22 11:55)
DX: K31.89 Other diseases of stomach and duodenum (principal); K22.8 Other specified diseases of esophagus; K21.9 Gastro-esophageal reflux disease without esophagitis
CPT/HCPCS: 43239; 81025; 88305; 88313; 88342; J7120; A4216; J2405

== ENCOUNTER 2021-04-02 05:57 | Day surgery (SDC) | payer BC, MEDICAID, SELFPAY ==
[2021-03-21 15:20] VITALS: BMI 27.3
[2021-03-22 11:42] VITALS: BMI 32.0
[2021-04-02] VITALS (13 sets, daily range): BP systolic 92–120; BP diastolic 61–71; PULSE 59–84; RESP 16–18; TEMP 36.4–36.9; O2SAT 92–100; BMI 32.2
--- NOTE | 2021-04-02 06:09 | EKG12_ITS ---
Test Reason : PRE OP Blood Pressure : / mmHG Vent. Rate : 073 BPM Atrial Rate : 073 BPM P-R Int : 148 ms QRS Dur : 084 ms QT Int : 392 ms P-R-T Axes : 061 052 030 degrees QTc Int : 431 ms Normal sinus rhythm Normal ECG When compared with ECG of 05-JUL-2013 22:10, No significant change was found Confirmed by KYLIE OLIVAS, PRISCILLA ([id number]), book editor RAULITO MALDONADO ([id number]) on 04/05/2021 1:09:06 PM Referred By: Jil Farmer Confirmed By:PRISCILLA ESPINAL MD
[2021-04-02 06:26] LABS: Internal QC Validated? YES +Cl - CLEAR BKGD; Pregnancy, Urine Negative Negative
[2021-04-02] MEDS: Lactated Ringers 1,000 ML 100 ML IV ×2 (06:44→08:46)
--- NOTE | 2021-04-02 07:11 | HP.PCM_ITS ---
History and Physical Date of Admission: 04/02/21 History and Physical Date of Service: 03/22/21 MR#:[id number] Acct:[id number] Name: RAULITO PEDRO :1995 Age/Sex: 25/F Rep #:[id number] Provider:Dr. Jil Farmer MD Location:[facility]:Signed Intake Vital Signs 03/21/21 15:17 03/21/21 15:20 Height 5 ft 7 in Weight: 208 lb BMI 32.5 27.3 BP 123/78 H Blood Pressure Location Rt brachial Position Sitting Respiration 18 Pulse 74 Pulse Source NIBP Temp 97.9 F Temp Source Temporal Pulse Oximetry (%) 98 Oxygen Delivery Method room air Intake Visit Reasons: Gall Stones Chief Complaint: gallstones, GERD, abd pain Fixed Income Portfolio Manager Required: No Is patient in pain?: No Allergies No Known Allergies Allergy (Verified 03/21/21 15:17) Medications drospirenone-ethinyl estradiol 1 tab PO DAILY 11/22/19 [History Confirmed 03/21/21] duloxetine 60 mg PO DAILY 11/22/19 [History Confirmed 11/22/19] lactulose 10 gm PO DAILY #60 ml 11/22/19 [Rx] cetirizine 10 mg tablet 10 mg PO BID PRN tab 03/21/21 [History Confirmed 03/21/21] famotidine 20 mg tablet 20 mg PO DAILY 03/21/21 [History Confirmed 03/21/21] pantoprazole 40 mg tablet,delayed release 40 mg PO DAILY 30 Days #30 tab 03/21/21 [Rx Confirmed 03/21/21] prenat.vits,chao,brv-wbnk-cqdyq 1 tab PO DAILY 03/21/21 [History Confirmed 03/21/21] sertraline 50 mg tablet 50 mg PO DAILY tab 03/21/21 [History Confirmed 03/21/21] Is last menstrual period known: No Post menopausal: No Patient : No PFSH Medical History (Updated 03/21/21 @ 16:[address] Jil Farmer MD) Anemia Anxiety GERD (gastroesophageal reflux disease) Surgical History (Updated 03/21/21 @ 15:16 by Sneha Perez) History of wisdom tooth extraction Family History (Updated 06/10/21 @ 15:17 by Sneha Perez) Mother Diabetes Father Diabetes Hypertension Hyperlipidemia Grandmother Cancer Social History Smoking Status: Never smoker HPI HPI HPI: RAULITO PEDRO, is a 25 F who presents to the office today for upper quadrant pain/gallstones. Patient states that she has been having some issues with her bowels for the last month where she will have to run to the bathroom after eating usually lettuce or greasy foods. Patient did have an ultrasound of her gallbladder which showed gallstones normal bladder wall, normal common bile duct. Patient does complain of some right upper quadrant pain after eating eating fatty or greasy foods. Patient also has reflux which she states she has had since she was 6 is been on medication since then. Previously patient was on ranitidine currently patient is on omeprazole 40 mg daily and Pepcid 40 mg p.o. at night. Patient has never had a previous EGD. ROS General General: Yes weight change and fatigue; No appetite, colon cancer, breast cancer or weakness HEENT HEENT: No difficulty swallowing, eye injury, eye surgery, swollen glands or hoarseness Endo Endocrine: No thyroid disease, diabetes mellitus, thyroid cancer, Hair loss, heat intolerance or cold intolerance Musc Musculoskeletal: No back problems, arthritis, rheumatoid arthritis, gout or joint pain Cardio Cardiovascular: No murmur, pacemaker, heart disease, atrial fibrillation, high blood pressure, heart attack, heart stent, palpitations, shortness of breat with exertion or chest pain Psych Psychiatric: Yes anxiety; No depression or hearing voices Resp Respiratory: No shortness of breath, No sleep apnea, No cough, No COPD, No asthma, No emphysema and No wheezing Gastro Gastrointestinal: Yes abdominal pain, Yes nausea or vomiting, Yes diarrhea, Yes constipation, No blood in stool, Yes acid reflux, No hemorrhoids, No ulcers, Yes gallbladder problem and No black,tarry stools Souleymane Hematologic: No blood thinners, No blood disorders, No bleeding, Yes anemia and No blood clots Neuro Neurologic: No weakness Exam Const General: cooperative, healthy appearing, comfortable and no acute distress Neck Neck: normal visual inspection Resp Effort & Inspection: normal respiratory effort Cardio Rate: regular rate GI Inspection: non-distended Palpation: soft, no guarding and tender (Left upper quadrant/epigastric/right upper quadrant, no peritoneal signs) Skin General: no rashes or lesions noted Neuro General: patient oriented x3 Psych Affect: normal affect Assessment and Plan Assessment and Plan (1) GERD (gastroesophageal reflux disease): Status: Acute (2) Gallstones: Status: Acute (3) RUQ pain: Status: Acute (4) Epigastric pain: Status: Acute (5) LUQ pain: Status: Acute Patient Instructions: Recommend patient have an EGD prior to laparoscopic cholecystectomy as patient's had a longstanding history of reflux and never had a previous scope. Patient was agreeable with plan. We will plan change patient to Protonix 40 mg p.o. daily as she was still having tenderness in the left upper quadrant on exam been on omeprazole 40 mg daily and Pepcid 40 mg p.o. at night. I have discussed the above with the patient. I have offered the patient EGD for evaluation. I have explained the risks/benefits of the procedure and described the procedure. I have discussed the risks with the patient, including but not limited to: infection, bleeding, perforation of the GI tract requiring emergency surgery, inability to complete the procedure, injury to any internal organs, complications of anesthesia, etc. - the patient understands and agrees to proceed. I have answered all the patient's questions to the patient's satisfaction and the patient has no further questions. Reviewed the anatomy with the patient and discussed the procedure: laparoscopic cholecystectomy with possible cholangiograms, possible open. Review risks including but not limited to bleeding, infection, hernia, bile leak, retained gallstones requiring another procedure ERCP- Endoscopic Retrograde Cholangiopancreatography, injury to another organ (bile ducts, common bile duct, small bowel, etc.) and conversion to an open procedure. All questions were answered. Jil Farmer M.D. Pager: [phone] [facility] [address] [place] [address], [address] [place] [address] Office: [phone] Plan Details Other Medications: New: pantoprazole (Protonix) 40 mg PO DAILY 30 days 30 tabs 0RF Discontinued: omeprazole Discontinued Reason: Order Changed PO Coding Level of Care Code Off vis,new,level 3 Diagnoses GERD (gastroesophageal reflux disease) K21.9 Gallstones K80.20 RUQ pain R10.11 Epigastric pain R10.13 LUQ pain R10.12 06/10/21 1614<Electronically signed by Jil Farmer MD>Date Jil Farmer MD
[2021-04-02] MEDS: Cefazolin 2 GM in 0.9% Normal Saline 100 ML IV (07:25)
--- NOTE | 2021-04-02 07:30 | RAD_ITS ---
CLINICAL HISTORY: Female, 25 years old. PROCEDURE: CHOLANGIOGRAM - CONSENT: SEDATION: FLUOROSCOPY TIME (if supplied): (0:12) minutes/seconds Contrast media was introduced to the common hepatic duct biliary stricture delineation of the intrahepatic, common hepatic and common bile duct without evidence any filling defects to suggest a stone formation. No stricture to suggest tumor. There is free spillage into the second portion of the duodenum.No reflux into the pancreatic RAD/Cholangiogram/ O R,Initial IMPRESSION: Negative study. Electronically Signed: Manisha Kuhn, at 16:13 EDT Tel , Service support ,
--- NOTE | 2021-04-02 07:30 | GALL_PTH ---
PATIENT: RAULITO PEDRO [place] [facility] [place][id number] AGE/SX: 25/F ROOM: RE04/02/[address]: Dr. Jil Farmer MD : 1995 BED: DIS: 04/02/2021 SPEC #: [id number] RECD: 04/02/21 11:02 STATUS: NAVIN GORGE #: [id number] ZORAN: 04/02/21 07:[address]: Jil Farmer DEPT: SURGICAL PATHOLOGY RECD BY: Mikayla Brower ENTERED: 04/02/21 11:35 SP TYPE: CAMILLE OLIVAS DR: Carol Montenegro PA-C Tissues: Gallbladder, NOS Procedures: Surgery Specimen Level III HEADER OPERATION: Laparoscopic cholecystectomy with IOC PRE-OP DIAGNOSIS: Gallstones, RUQ pain, epigastric pain, LUQ pain TISSUE SUBMITTED: Gallbladder MICROSCOPIC DIAGNOSIS Gallbladder, cholecystectomy: Cholesterolosis, chronic cholecystitis and cholelithiasis. Focal dysplastic epithelium. AM:monica 04/03/2021 MICROSCOPIC DESCRIPTION Slides are reviewed. GROSS DESCRIPTION Received is one container labeled with the patient's name and designated gallbladder. The specimen consists of a gallbladder measuring 7 cm in length and up to 3 cm in diameter. The external surface is pink-montgomery, smooth and glistening for the most part. Focally it is granular, hemorrhagic and contains cautery artifact. The gallbladder contains green-yellow mucoid bile. Present in the container are four variable sized multifaceted light yellowish-green stones measuring in aggregate 3 x 2.6 x 1 cm and 1 to 1.5 cm in greatest dimension. The mucosa is bile-stained and without any mass lesions. The gallbladder wall measures up to 0.3 cm in thickness. The mucosa also shows several yellowish streaks consistent with cholesterolosis. Parcel Post Delivery sections from the gallbladder and the cystic duct are submitted in one cassette. / SJ:monica 04/02/21 TC:3 CPT: 21916 ADDENDUM ADDENDUM ADDENDUM ADDENDUM ADDENDUM ADDENDUM ADDENDUM ADDENDUM ADDENDUM ADDENDUM ADDENDUM ADDENDUM ADDENDUM 04/24/2021 12:23 ADDENDUM 04/24/2021 12:23 ADDENDUM 04/24/2021 12:23 ADDENDUM 04/24/2021 12:23 ADDENDUM 04/24/2021 12:23 This addendum is added to incorporate an outside pathology consultation report requested by Dr. Farmer. The case was examined at [facility] (#[id number]) and the following diagnosis was rendered. Gallbladder, cholecystectomy: Focal intestinal metaplasia, negative for dysplasia. Cholesterolosis. Chronic cholecystitis. Cholelithiasis. Please see complete above mentioned consultation report in EMR
--- NOTE | 2021-04-02 08:33 | PCM.OPRPT ---
Report of Operation Date of Procedure: 04/02/21 Pre-Operative Diagnosis: Cholelithiasis, right upper quadrant pain Post-Operative Diagnosis: Same Surgery/Procedure Performed:: Laparoscopic cholecystectomy with cholangiograms Surgeon: Jli Farmer heat engineering teacher: Lena Edwards Type of Anesthesia: General/Supplemental Anesthesiologist: Lc Sharpe Special Medications: Ancef 2 g IV x1 Specimen's removed: Gallbladder Estimated Blood Loss (mL): < 10 cc Fluids Replaced: Per anesthesia Description of Procedure: Indications this is a 25 year-old female who developed abdominal pain/nausea and on workup was found to have cholelithiasis, with a normal common bile duct. Laparoscopic cholecystectomy was elected. Description procedure: The patient was placed on operating table in supine position. General Anesthesia was induced. A timeout was completed verifying correct patient, procedure, site, position and special equipment prior to beginning procedure. The abdomen was prepped and draped in usual sterile fashion. An incision was made in the natural skin line above the umbilicus. The fascia was elevated and incised. The peritoneum was elevated and incised. Entry into the peritoneum was confirmed visually and no bowel was noted in the vicinity of the incision. Son trocar was placed. The abdomen was insufflated with carbon dioxide to a pressure of 12-15 mmHg. Patient tolerated insufflation well. The laparoscope was then inserted and abdomen inspected. No injuries from initial trocar placement were noted. Additional trochars were then inserted in the following locations 5 mm trocar in the epigastrium and 2 more 5 mm trochars along the right costal margin. The abdomen was inspected no abnormalities were found. The table is placed in reverse Trendelenburg position with the right side up. The adhesions between the gallbladder and omentum were lysed sharply. The dome of the gallbladder was grasped with atraumatic grasper passed through the lateral port and retracted over the dome of the liver. Infundibulum was then grasped with atraumatic grasper through the midclavicular port and retracted to the right lower quadrant. This maneuver exposed Calot's triangle. The peritoneum overlying the gallbladder infundibulum was then incised and cystic duct and artery identified and circumferentially dissected. Paredes catheter was used for cholangiograms. The cholangiogram showed good filling of the common bile duct into the duodenum with no filling defects, good filling of the right and left bile ducts as well. The cystic duct and artery were then doubly clipped and divided close to the gallbladder. The gallbladder then dissected from its peritoneal attachments by electrocautery. Hemostasis was checked and the gallbladder and contained stones were removed using the endoscopic retrieval bag through the umbilical port. The gallbladder is passed off table as specimen. The gallbladder fossa was copiously irrigated with saline and hemostasis obtained. There is no evidence of bleeding from the gallbladder fossa or cystic artery leakage of bile from the cystic duct stump. Secondary trochars removed under direct vision. No bleeding was noted the trocar sites. The laparoscope was withdrawn and umbilical trocar removed. The abdomen was allowed to collapse. The fascia of the 12 mm trocar was closed with a [id number] 0 Vicryl suture. The skin was closed with sutures of 4-0 Monocryl and Steri-Strips. The orogastric tube was removed and the patient was extubated. The patient tolerated procedure well and was taken to the postanesthesia care unit in stable condition. Complications None
--- NOTE | 2021-04-02 08:35 | EX.PCM.DISCH ---
Discharge Instructions Diet Discharge Diet: Light diet - advance as tolerated Activity Discharge Activity: May Not Drive (while taking narcotic pain medications.) May shower in (days): 1 Lifting Restrictions: no lifting >20 lbs x 2 wks, no strenuous exercise for 4 wks Dressing / Incision Call your doctor if your incision/area has: Continuous Slow Oozing, Sudden Increased Bleeding, Increased Pain/ Swelling, Increased Redness, Foul Smelling Discharge and Swelling at the incision site Call your doctor if you observe: Fever of 101 or Higher Remove Dressing in: 2 days Cleanse incision/area with: Soap & Water Additional Dressing/Incision Instructions:: Steri-Strips will fall off in 7 to 10 days, if they do not fall off okay to remove after 10 days. Follow Up Care Please Follow Up With: Jil Farmer MD When: Call the office for a follow-up appointment 2 weeks; after 5 PM and on the weekends call [phone] with any concerns. Test Results: Test results from this visit will be discussed in further detail at your follow-up appointment, if applicable. Discharge Plan Admission Attending Provider: Jil Farmer Primary Care Provider: Carol Montenegro Instructions Additional Instructions / Restrictions: Okay to take ibuprofen 400-600 mg PO q6hr PRN along with the Percocet. Avoid Tylenol since there is already Tylenol in the Percocet. Take all pain meds with food. Percocet can cause constipation recommend taking daily stool softener (i.e. Colace/docusate) while taking the pain meds. Recommend starting some MiraLAX in 1 to 2 days if no bowel movement. If still no bowel movement the following day recommend taking magnesium citrate half the bottle and waiting 4-6 hours if still no results take the other half the bottle. Discharge Orders/Prescriptions Prescriptions: New oxycodone-acetaminophen [Endocet] 5-325 mg tablet 1 - 2 tab PO Q6H PRN (Reason: pain) 3 Days Qty: 20 RF: 0 Continued sertraline 50 mg tablet 50 mg PO QHS RF: 0 cetirizine [Zyrtec] 10 mg tablet 10 mg PO BID PRN (Reason: allergys) RF: 0 prenat.vits,chao,hbq-lxln-yyliy Tablet 1 tab PO QHS RF: 0 famotidine 20 mg tablet 20 mg PO QHS RF: 0 duloxetine 60 MG capsule,delayed release(DR/EC) 60 mg PO QHS RF: 0 drospirenone-ethinyl estradiol 1 EACH tablet 1 tab PO QHS RF: 0 pantoprazole [Protonix] 40 mg tablet,delayed release (DR/EC) 40 mg PO QHS RF: 0 lactulose 10 GM/15 ML solution 10 gm PO QHS RF: 0 Referrals / Follow Up: Carol Montenegro PA-C [Primary Care Provider] - Disposition Disposition (needs filled in before D/C Order can be placed): Home, Self Care
[2021-04-02] MEDS: Bupivacaine Mpf 0.5% 30 ML VIAL (08:39)
[2021-04-02] MEDS: oxyCODONE 5 MG Tablet PO (11:37)
[2021-04-02] MEDS: Acetaminophen 325 MG Tablet PO (11:37)
== END 2021-04-02 13:37 | disposition home or self-care (01) ==
LOC: SDC 05:58 → AC 06:00
PROVIDERS: Anesthesiology; PCP Family Medicine; Referring Provider Surgery; Visit Provider Surgery
PROC: (CPT 47610; principal; 2021-04-02 07:10)
DX: K80.10 Calculus of gallbladder with chronic cholecystitis without obstruction (principal); R10.11 Right upper quadrant pain; K21.9 Gastro-esophageal reflux disease without esophagitis
CPT/HCPCS: 47563; 74300; 76000; 81025; 88304; 93005; J7120; J2405

== ENCOUNTER 2021-12-30 09:05 | Outpatient (CLI) | payer BC, SELFPAY ==
[2021-12-30 13:37] LABS: Amphetamine Urine VISTA NEGATIVE (<1000 ng/mL); Barbiturate Urine VISTA NEGATIVE (< 200 ng/mL); Benzodiazepine Urine VISTA NEGATIVE (< 200 ng/mL); Cocaine Urine VISTA NEGATIVE (< 300 ng/mL); Ecstacy Urine VISTA NEGATIVE (< 500 ng/mL); Methadone Urine VISTA NEGATIVE (< 300 ng/mL); PCP Urine VISTA NEGATIVE (< 25 ng/mL); THC Urine VISTA NEGATIVE (< 50 ng/mL); Vista UDS pH Range 5
[2021-12-31 22:06] LABS: Chlamydia By Nucleic Acid AMP Negative (Negative)
[2022-01-01 17:24] LABS: Gonococcus By Nucleic Acid AMP Negative (Negative)
== END 2021-12-30 23:59 | disposition home or self-care (01) ==
LOC: LABSPEC 12-31 09:06
PROVIDERS: PCP Family Medicine; Visit Provider Obstetrics & Gynecology
DX: Z34.90 Encounter for supervision of normal pregnancy, unspecified, unspecified trimester (principal)
CPT/HCPCS: 80307; 87086; 87088; 87491; 87591

== ENCOUNTER → 2022-01-31 | Outpatient (CLI) | payer BC, MEDICAID, SELFPAY ==
[2022-01-31 13:38] LABS: Absolute Lymphocyte Count 2.08 X10^3/uL (0.83-4.51); Absolute Neutrophil Count 6.5 X10^3/uL (2.0-7.7); Basophil# 0.03 X10^3/uL; Basophil% 0.3 % (0-1); Eosinophil# 0.11 X10^3/uL; Eosinophils% 1.2 % (0-5); Hemoglobin 11.7 g/dL (12.0-15.0); Lymphocyte # 2.08 X10^3/ul (0.83-4.51); Lymphocyte % 22.9 % (19-41); Mean Corp Hgb Conc 32.5 g/dL (32-36); Mean Corpuscular Hgb 27.2 pg (27.0-32.0); Mean Corpuscular Volume 83.7 fL (81-99); Monocyte# 0.34 X10^3/uL; Monocyte% 3.7 % (0-10); NRBC Flagged by Analyzer 0 % (0-5); Neutrophil # 6.51 X10^3/uL (2.7-7.7); Neutrophil % 71.6 % (47-70); Platelet Count 223 K/mm3 (150-450); RBC Distribution Width CV 13.3 % (11.6-14.6); RBC Distribution Width SD 40.4 fl (35.1-43.9); White Blood Count 9.1 K/mm3 (4.4-11.0)
[2022-01-31 14:02] LABS: Glucose Challenge Gest 1H 50g 138 mg/dL (70-140)
[2022-01-31 14:59] LABS: HIV - WCH Non-Reactive (Nonreactive); Hepatitis B Surface Antigen Non-Reactive (Nonreactive); Hepatitis C Antibody Non-Reactive (Nonreactive); Rubella IgG Reactive (Nonreactive); Syphilis Antibodies Non-reactive
== END | disposition home or self-care (01) ==
PROVIDERS: PCP Family Medicine; Referring Provider Obstetrics & Gynecology; Visit Provider Obstetrics & Gynecology
DX: Z34.90 Encounter for supervision of normal pregnancy, unspecified, unspecified trimester (principal)
CPT/HCPCS: 36415; 82950; 85025; 86703; 86762; 86780; 86803; 86850; 86900; 86901; 87340

== ENCOUNTER → 2022-02-11 | Outpatient (CLI) | payer BC, MEDICAID, SELFPAY ==
[2022-02-11 07:46] LABS: Glucose GTT-Gestation. Fasting 95 mg/dL (<105)
[2022-02-11 09:08] LABS: Glucose GTT-Gestational 1 Hr 139 mg/dL (<190)
[2022-02-11 10:07] LABS: Glucose GTT-Gestational 2 Hr 119 mg/dL (<165)
[2022-02-11 11:46] LABS: Glucose GTT-Gestational 3 Hr 89 L (<145)
== END | disposition home or self-care (01) ==
LOC: LAB 07:05
PROVIDERS: Referring Provider Obstetrics & Gynecology; Visit Provider Obstetrics & Gynecology
DX: O99.810 Abnormal glucose complicating pregnancy (principal); Z3A.00 Weeks of gestation of pregnancy not specified
CPT/HCPCS: 36415; 82951; 82952